=== PATIENT | female | born 1995 | race Caucasian/White ===

== ENCOUNTER 2019-07-06 13:38 | Emergency (ER) | payer OTHER ==
[~2019-07-06] VITALS: Ht 162.6 cm; Wt 129.3 kg
[2019-07-06 13:45] VITALS: TEMP 98.5
[2019-07-06 15:55] VITALS: BP 143/92
== END 2019-07-06 15:55 | disposition home or self-care (01) ==
LOC: ED 13:38
DX: J30.9 Allergic rhinitis, unspecified (principal); R05 Cough
CPT/HCPCS: 87502; 87651; 99283

== ENCOUNTER 2020-09-03 12:25 | Emergency (ER) | payer OTHER ==
[~2020-09-03] VITALS: Ht 162.6 cm; Wt 136.1 kg
[2020-09-03 12:30] VITALS: TEMP 98.1
[2020-09-03 13:34] VITALS: BP 138/100
== END 2020-09-03 13:34 | disposition home or self-care (01) ==
LOC: ED 12:25
DX: J02.9 Acute pharyngitis, unspecified (principal); Z03.818 Encounter for observation for suspected exposure to other biological agents ruled out
CPT/HCPCS: 87502; 87635; 87651; 99283; U0003